=== PATIENT | female | born 1990 | race Caucasian/White ===

== ENCOUNTER 2017-10-28 19:23 | Emergency (ER) | payer OTHER ==
[~2017-10-28] VITALS: Ht 160 cm; Wt 85.7 kg
[~2017-10-28 19:23] MED LIST: [UNRECOGNIZED DRUG - OTHER]
== END 2017-10-28 21:10 | disposition home or self-care (01) ==
LOC: ER 19:23
DX: S93.401A Sprain of unspecified ligament of right ankle, initial encounter (principal); F41.9 Anxiety disorder, unspecified; F32.9 Major depressive disorder, single episode, unspecified; W19.XXXA Unspecified fall, initial encounter
CPT/HCPCS: 73610; 99283

== ENCOUNTER → 2020-06-24 | Outpatient (CLI) | payer OTHER ==
[2020-06-26 15:49] LABS: CORONAVIRUS (COVID19) CSH-NRL Negative (Negative)
== END | disposition home or self-care (01) ==
LOC: PLD 15:21
PROVIDERS: Physician Assistant
DX: J06.9 Acute upper respiratory infection, unspecified (principal); Z20.828 Contact with and (suspected) exposure to other viral communicable diseases
CPT/HCPCS: U0003